=== PATIENT | female | born 1980 | race Caucasian/White ===

== ENCOUNTER 2018-09-13 10:27 | Inpatient (IN) ==
[2018-09-13] MEDS ORDERED: PANTOPRAZOLE 40 MG VIAL IV STA (11:01)
[2018-09-13] MEDS ORDERED: SODIUM CHLORIDE 0.9% 1,000 ML IV STA (11:01)
[2018-09-13 11:45] LABS: Apearance,Urine CLEAR (Clear); Bacteria,Urine Occasional /HPF (Few); Bilirubin,Urine Negative (Negative); Blood, Urine Negative (Negative); Glucose,Urine (UA) Negative (Negative); Ketones,Urine Negative (Negative); Nitrite,Urine Negative (Negative); Protein,Urine Negative; RBC,Urine 1 /HPF (0-4); Squamous Epithelial Cell,Urine Moderate /HPF (0-10); Urine Color Straw (Yellow); Urine Specific Gravity 1.008 (1.001-1.035); Urine Urobilinogen < 2.0 EU/DL (0.2-1.0); WBC,Urine 2 /HPF (0-6)
[2018-09-13 11:49] LABS: Alanine Aminotransferase 16 U/L (13-56); Albumin 2.8 G/DL (3.4-5.0); Alkaline Phosphatase 117 U/L (45-117); Aspartate Amino Transferase 11 U/L (0-37); Bilirubin,Total < 0.39 MG/DL (0.2-1.0); Blood Urea Nitrogen 10 MG/DL (7-18); Glucose 98 MG/DL (74-106); Osmolality,Calculated 277.4 MOS/KG (273-304); Potassium 3.8 MMOL/L (3.5-5.1); Sodium 140 MMOL/L (136-145); Total Protein 6.5 G/DL (6.4-8.3)
[2018-09-13] MEDS ORDERED: PROMETHAZINE INJ 12.5 MG in SODIUM CHLORIDE 0.9% 50 ML IV STA (12:18)
[2018-09-13] MEDS ORDERED: PROMETHAZINE 25 MG/1 ML VIAL ONE (12:55)
[2018-09-13 13:17] LABS: Basophils % 0.5 % (0.0-0.8); Eosinophils # 0.6 10*3/uL (0.0-0.87); Hematocrit 34.1 VOL% (35.7-47.0); Hemoglobin 9.4 GM/DL (12.0-16.0); Immature Granulocytes % 0.3 %; Immature Granulocytes Absolute 0.02 #; Lymphocytes # 1.5 10*3/uL (1.4-4.0); Lymphocytes % 24.7 % (21.3-54.2); Mean Corpuscular HGB Conc 27.6 GM/DL (32-36); Mean Corpuscular Hemoglobin 22 PG (27-34); Mean Corpuscular Volume 78.9 FL (87-102); Monocytes # 0.5 10*3/uL (0.11-0.8); Monocytes % 7.8 % (1.7-12.7); Neutrophils # 3.5 10*3/uL (1.4-7.4); Neutrophils % 56.7 % (38.7-73.9); Platelet Count 366 T/CUMM (130-400); Red Blood Count 4.32 MC/CUMM (3.8-5.5); Red Cell Distribution Width 23.6 % (9.3-17.3); White Blood Count 6.1 T/CUMM (4-12)
[2018-09-13 13:57] LABS: Microcytosis 2+
[2018-09-13 13:58] LABS: Elliptocytes Few; Tear Drop Cells Few
[2018-09-13 13:59] LABS: Platelet Estimate Increased
[2018-09-13] MEDS ORDERED: ACETAMINOPHEN 500 MG TABLET PO STA (16:25)
[2018-09-13] MEDS ORDERED: ACETAMINOPHEN 325 MG TABLET PO PRN (18:03)
[2018-09-13] MEDS ORDERED: IBUPROFEN 800 MG TABLET PO PRN (19:04)
[2018-09-13] MEDS ORDERED: GABAPENTIN 300 MG CAPSULE PO PRN (19:04)
[2018-09-13] MEDS ORDERED: MORPHINE 4 MG/1 ML VIAL IV PRN (19:20)
[2018-09-13] MEDS: MORPHINE 4 MG/1 ML VIAL IV PRN (20:16)
[2018-09-13] MEDS: PIPERACILLIN/TAZOBACTAM 3,375 MG in SODIUM CHLORIDE 0.9% 100 ML IV SCH (20:19)
[2018-09-13] MEDS ORDERED: ENOXAPARIN 40 MG/0.4 ML SYRINGE SUBCUT SCH (21:00)
[2018-09-13] MEDS ORDERED: ZALEPLON 5 MG CAPSULE PO SCH (21:00)
[2018-09-13] MEDS: PROMETHAZINE 25 MG TABLET PO PRN (21:44)
[2018-09-14] MEDS: MORPHINE 4 MG/1 ML VIAL IV PRN ×6 (00:18→21:32)
[2018-09-14] MEDS: PIPERACILLIN/TAZOBACTAM 3,375 MG in SODIUM CHLORIDE 0.9% 100 ML IV SCH ×3 (02:47→23:48)
[2018-09-14 05:32] LABS: Basophils % 0.5 % (0.0-0.8); Eosinophils # 0.6 10*3/uL (0.0-0.87); Eosinophils % 8.7 % (0.00-10.9); Immature Granulocytes % 0.6 %; Immature Granulocytes Absolute 0.04 #; Lymphocytes # 1.5 10*3/uL (1.4-4.0); Lymphocytes % 22.2 % (21.3-54.2); Mean Corpuscular HGB Conc 27.8 GM/DL (32-36); Mean Corpuscular Hemoglobin 22 PG (27-34); Mean Corpuscular Volume 79.8 FL (87-102); Mean Platelet Volume 10.4 FL (9.6-12.0); Monocytes # 0.5 10*3/uL (0.11-0.8); Platelet Count 359 T/CUMM (130-400); Red Blood Count 4.01 MC/CUMM (3.8-5.5); Red Cell Distribution Width 23.7 % (9.3-17.3); White Blood Count 6.6 T/CUMM (4-12)
[2018-09-14 05:41] LABS: Calcium 8.1 MG/DL (8.5-10.1); Osmolality,Calculated 278.1 MOS/KG (273-304); Potassium 3.9 MMOL/L (3.5-5.1); Thyroid Stimulating Hormone 6.35 uIU/ml (0.358-3.74)
[2018-09-14 05:42] LABS: Hematocrit 31.6 VOL% (35.7-47.0)
[2018-09-14 05:43] LABS: Hemoglobin 8.9 GM/DL (12.0-16.0)
[2018-09-14 05:47] LABS: Anisocytosis 1+
[2018-09-14 05:48] LABS: Hypochromasia 1+; Microcytosis 1+; Ovalocytes Slight; Stomatocytes Slight
[2018-09-14 05:49] LABS: Platelet Estimate Normal
[2018-09-14] MEDS: LISINOPRIL 20 MG TABLET PO SCH (09:40)
[2018-09-14] MEDS ORDERED: BUPIVACAINE 0.5% 50 ML VIAL ONE (10:37)
[2018-09-14] MEDS ORDERED: LIDOCAINE 1%/EPI INJ 20 ML VIAL ONE (10:37)
[2018-09-14] MEDS: LACTATED RINGERS 1,000 ML IV SCH (10:39)
[2018-09-14] MEDS: HYDROmorphone 2 MG/1 ML VIAL IV PRN ×4 (11:55→12:10)
[2018-09-14] MEDS ORDERED: PROPOFOL 200 MG/20 ML VIAL IV ONE (11:57)
[2018-09-14] MEDS ORDERED: SEVOFLURANE 1 UNIT/15 MINUTE INH ONE (11:57)
[2018-09-14] MEDS ORDERED: fentaNYL 100 MCG/2 ML VIAL ONE (11:57)
[2018-09-14] MEDS ORDERED: HYDROmorphone 2 MG/1 ML VIAL ONE (11:58)
[2018-09-14] MEDS ORDERED: MIDAZOLAM 2 MG/2 ML VIAL ONE (11:58)
[2018-09-14] MEDS: PROMETHAZINE 25 MG TABLET PO PRN (15:19)
[2018-09-14] MEDS ORDERED: ZALEPLON 5 MG CAPSULE PO PRN (20:18)
[2018-09-14] MEDS: ZOLPIDEM 5 MG TABLET PO PRN (23:46)
[2018-09-15] MEDS: MORPHINE 4 MG/1 ML VIAL IV PRN ×5 (04:08→22:19)
[2018-09-15 05:34] LABS: Calcium 8.7 MG/DL (8.5-10.1); Osmolality,Calculated 277.3 MOS/KG (273-304); Potassium 3.6 MMOL/L (3.5-5.1)
[2018-09-15] MEDS: PIPERACILLIN/TAZOBACTAM 3,375 MG in SODIUM CHLORIDE 0.9% 100 ML IV SCH ×3 (06:31→22:23)
[2018-09-15 06:44] LABS: Basophils % 0.5 % (0.0-0.8); Eosinophils # 0.3 10*3/uL (0.0-0.87); Eosinophils % 5.4 % (0.00-10.9); Hematocrit 32.6 VOL% (35.7-47.0); Hemoglobin 9.3 GM/DL (12.0-16.0); Immature Granulocytes % 0.4 %; Immature Granulocytes Absolute 0.02 #; Lymphocytes % 16.7 % (21.3-54.2); Mean Corpuscular HGB Conc 28.5 GM/DL (32-36); Mean Corpuscular Hemoglobin 22 PG (27-34); Mean Corpuscular Volume 78.6 FL (87-102); Mean Platelet Volume 10.6 FL (9.6-12.0); Monocytes # 0.5 10*3/uL (0.11-0.8); Monocytes % 8.1 % (1.7-12.7); Neutrophils # 3.9 10*3/uL (1.4-7.4); Neutrophils % 68.9 % (38.7-73.9); Platelet Count 427 T/CUMM (130-400); Red Blood Count 4.15 MC/CUMM (3.8-5.5); Red Cell Distribution Width 23.5 % (9.3-17.3); White Blood Count 5.7 T/CUMM (4-12)
[2018-09-15 07:42] LABS: Hypochromasia 1+; Microcytosis 1+; Ovalocytes Slight; Platelet Estimate Adequate
[2018-09-15] MEDS: LISINOPRIL 20 MG TABLET PO SCH (09:58)
[2018-09-15] MEDS: LACTATED RINGERS 1,000 ML IV SCH (12:49)
[2018-09-15] MEDS: ZOLPIDEM 5 MG TABLET PO PRN (23:05)
[2018-09-16] MEDS: MORPHINE 4 MG/1 ML VIAL IV PRN ×2 (04:08→08:09)
[2018-09-16 05:03] LABS: Calcium 8.6 MG/DL (8.5-10.1); Osmolality,Calculated 280.1 MOS/KG (273-304); Potassium 3.4 MMOL/L (3.5-5.1)
[2018-09-16 05:17] LABS: Basophils % 0.7 % (0.0-0.8); Eosinophils # 0.6 10*3/uL (0.0-0.87); Eosinophils % 13.1 % (0.00-10.9); Hematocrit 32.4 VOL% (35.7-47.0); Hemoglobin 9.3 GM/DL (12.0-16.0); Immature Granulocytes % 0.9 %; Immature Granulocytes Absolute 0.04 #; Lymphocytes # 1.2 10*3/uL (1.4-4.0); Lymphocytes % 27.3 % (21.3-54.2); Mean Corpuscular HGB Conc 28.7 GM/DL (32-36); Mean Corpuscular Hemoglobin 23 PG (27-34); Mean Corpuscular Volume 78.5 FL (87-102); Mean Platelet Volume 10.3 FL (9.6-12.0); Monocytes # 0.4 10*3/uL (0.11-0.8); Neutrophils # 2.2 10*3/uL (1.4-7.4); Platelet Count 430 T/CUMM (130-400); Red Blood Count 4.13 MC/CUMM (3.8-5.5); Red Cell Distribution Width 23.6 % (9.3-17.3); White Blood Count 4.4 T/CUMM (4-12)
[2018-09-16 05:18] LABS: Anisocytosis 1+; Platelet Estimate Increased
[2018-09-16] MEDS: PIPERACILLIN/TAZOBACTAM 3,375 MG in SODIUM CHLORIDE 0.9% 100 ML IV SCH (05:41)
[2018-09-16] MEDS: PROMETHAZINE 25 MG TABLET PO PRN (05:44)
[2018-09-16 08:37] VITALS: BP 144/76
[2018-09-16] MEDS ORDERED: SODIUM HYPOCHLORITE 0.25% IRRIG 473 ML BOTTLE TOP SCH (09:00)
[2018-09-16] MEDS: LISINOPRIL 20 MG TABLET PO SCH ×2 (10:06→11:51)
== END 2018-09-16 12:08 | disposition home health service (06) | DRG 580 ==
LOC: N.ED 10:27 → N.EDINP 18:03 → N.4E 20:08
PROVIDERS: ADMIT Emergency Medicine; ATTEND Emergency Medicine

== ENCOUNTER 2018-11-29 21:12 | Inpatient (IN) ==
[2018-11-29] MEDS ORDERED: SODIUM CHLORIDE 0.9% 1,000 ML IV STA (21:41)
[2018-11-29] MEDS ORDERED: MORPHINE 4 MG/1 ML VIAL IV STA (21:41)
[2018-11-29] MEDS ORDERED: PROMETHAZINE INJ 25 MG in SODIUM CHLORIDE 0.9% 50 ML IV STA (21:42)
[2018-11-29] MEDS ORDERED: METOCLOPRAMIDE 10 MG/2 ML VIAL IV STA (22:12)
[2018-11-29 22:34] LABS: Basophils % 0.4 % (0.0-0.8); Eosinophils % 0.1 % (0.00-10.9); Hemoglobin 9.1 GM/DL (12.0-16.0); Red Cell Distribution Width 18.2 % (9.3-17.3)
[2018-11-29 22:52] LABS: Alanine Aminotransferase 20 U/L (13-56); Albumin 4.3 G/DL (3.4-5.0); Alkaline Phosphatase 120 U/L (45-117); Aspartate Amino Transferase 14 U/L (0-37); Bilirubin,Total < 0.39 MG/DL (0.2-1.0); Blood Urea Nitrogen 14 MG/DL (7-18); Calcium 9.4 MG/DL (8.5-10.1); Glucose 130 MG/DL (74-106); Osmolality,Calculated 290.7 MOS/KG (273-304); Total Protein 7.7 G/DL (6.4-8.3)
[2018-11-29 22:53] LABS: Hematocrit 35.1 VOL% (35.7-47.0); Immature Granulocytes % 0.8 %; Immature Granulocytes Absolute 0.08 #; Lymphocytes # 0.8 10*3/uL (1.4-4.0); Lymphocytes % 7.9 % (21.3-54.2); Mean Corpuscular HGB Conc 25.9 GM/DL (32-36); Mean Corpuscular Volume 76.6 FL (87-102); Mean Platelet Volume 10.7 FL (9.6-12.0); Monocytes % 4.7 % (1.7-12.7); Neutrophils % 86.1 % (38.7-73.9); Platelet Count 506 T/CUMM (130-400); Red Blood Count 4.58 MC/CUMM (3.8-5.5); White Blood Count 10.2 T/CUMM (4-12)
[2018-11-29 22:54] LABS: Hypochromasia 1+
[2018-11-29 22:55] LABS: Anisocytosis 1+; Elliptocytes 1+; Platelet Estimate Adequate; Polychromasia Few; Target Cells Few
[2018-11-29 23:50] LABS: Apearance,Urine CLEAR (Clear); Bilirubin,Urine Negative (Negative); Blood, Urine Negative (Negative); Glucose,Urine (UA) Negative (Negative); Hyaline Casts,Urine 6 /LPF (0-3); Ketones,Urine 5 mg/dL (Negative); Mucus,Urine Occasional /LPF (Occasional); Nitrite,Urine Negative (Negative); Protein,Urine 30 MG/DL; RBC,Urine <1 /HPF (0-4); Renal Epithelial Cells,Urine Occasional /HPF (<1); Squamous Epithelial Cell,Urine Occasional /HPF (0-10); Urine Color Yellow (Yellow); Urine Specific Gravity 1.025 (1.001-1.035); Urine Urobilinogen < 2.0 EU/DL (0.2-1.0); WBC,Urine 2 /HPF (0-6)
[2018-11-30] MEDS: SODIUM CHLORIDE 0.9% 1,000 ML IV SCH ×3 (04:45→23:50)
[2018-11-30] MEDS: ENOXAPARIN 40 MG/0.4 ML SYRINGE SUBCUT SCH (04:45)
[2018-11-30] MEDS: PROMETHAZINE 25 MG/1 ML VIAL IM PRN ×3 (04:59→18:37)
[2018-11-30] MEDS: MORPHINE 4 MG/1 ML VIAL IV PRN ×4 (04:59→23:43)
[2018-11-30 07:15] LABS: Alanine Aminotransferase 17 U/L (13-56); Albumin 3.8 G/DL (3.4-5.0); Alkaline Phosphatase 103 U/L (45-117); Aspartate Amino Transferase 9 U/L (0-37); Bilirubin,Total < 0.39 MG/DL (0.2-1.0); Blood Urea Nitrogen 11 MG/DL (7-18); Calcium 9.3 MG/DL (8.5-10.1); Glucose 101 MG/DL (74-106); Osmolality,Calculated 284.8 MOS/KG (273-304); Total Protein 7.4 G/DL (6.4-8.3)
[2018-11-30 07:28] LABS: Basophils % 0.1 % (0.0-0.8); Hematocrit 31.7 VOL% (35.7-47.0); Immature Granulocytes % 0.4 %; Immature Granulocytes Absolute 0.03 #; Lymphocytes # 0.9 10*3/uL (1.4-4.0); Lymphocytes % 12.2 % (21.3-54.2); Mean Corpuscular HGB Conc 26.5 GM/DL (32-36); Mean Corpuscular Volume 76.8 FL (87-102); Mean Platelet Volume 10.1 FL (9.6-12.0); Neutrophils % 82.3 % (38.7-73.9); Platelet Count 424 T/CUMM (130-400); Red Blood Count 4.13 MC/CUMM (3.8-5.5)
[2018-11-30 07:39] LABS: Hemoglobin 8.4 GM/DL (12.0-16.0)
[2018-11-30 07:50] LABS: Hypochromasia 1+
[2018-11-30 07:51] LABS: Microcytosis 1+; Ovalocytes Slight; Platelet Estimate Increased
[2018-11-30] MEDS: POTASSIUM CHLORIDE 20 MEQ TABLET PO PRN ×2 (17:56→22:01)
[2018-11-30] MEDS: ZALEPLON 5 MG CAPSULE PO PRN (23:49)
[2018-12-01] MEDS: ENOXAPARIN 40 MG/0.4 ML SYRINGE SUBCUT SCH (02:05)
[2018-12-01 05:06] LABS: Calcium 8.2 MG/DL (8.5-10.1); Osmolality,Calculated 282.8 MOS/KG (273-304)
[2018-12-01] MEDS: MORPHINE 4 MG/1 ML VIAL IV PRN ×4 (05:18→22:03)
[2018-12-01] MEDS: PROMETHAZINE 25 MG/1 ML VIAL IM PRN ×3 (05:21→17:11)
[2018-12-01] MEDS ORDERED: LACTATED RINGERS 1,000 ML IV SCH (08:00)
[2018-12-01] MEDS ORDERED: PROPOFOL 200 MG/20 ML VIAL IV ONE (10:15)
[2018-12-01] MEDS ORDERED: ETOMIDATE 20 MG/10 ML VIAL IV ONE (10:15)
[2018-12-01] MEDS ORDERED: LIDOCAINE 2% 5 ML VIAL ONE (10:15)
[2018-12-01] MEDS: SODIUM CHLORIDE 0.9% 1,000 ML IV SCH ×3 (11:59→22:03)
[2018-12-02] MEDS: ENOXAPARIN 40 MG/0.4 ML SYRINGE SUBCUT SCH (01:52)
[2018-12-02] MEDS: PROMETHAZINE 25 MG/1 ML VIAL IM PRN (07:57)
[2018-12-02] MEDS: SODIUM CHLORIDE 0.9% 1,000 ML IV SCH ×2 (13:42→21:35)
[2018-12-02] MEDS: MORPHINE 4 MG/1 ML VIAL IV PRN ×3 (13:42→18:26)
[2018-12-02] MEDS ORDERED: PANTOPRAZOLE 40 MG TABLET PO SCH (14:00)
[2018-12-02] MEDS ORDERED: PROMETHAZINE 25 MG TABLET PO PRN (16:11)
[2018-12-02] MEDS: SUCRALFATE 1 GM/10 ML UDCUP PO SCH ×2 (18:26→21:35)
[2018-12-02] MEDS: IRON SUCROSE 200 MG in SODIUM CHLORIDE 0.9% 100 ML IV SCH (18:26)
[2018-12-02] MEDS: ZALEPLON 5 MG CAPSULE PO PRN (21:34)
[2018-12-02] MEDS: PANTOPRAZOLE 40 MG TABLET PO SCH (21:35)
[2018-12-03] MEDS: ENOXAPARIN 40 MG/0.4 ML SYRINGE SUBCUT SCH (02:47)
[2018-12-03] MEDS: SODIUM CHLORIDE 0.9% 1,000 ML IV SCH (02:48)
[2018-12-03] MEDS: MORPHINE 4 MG/1 ML VIAL IV PRN (02:49)
[2018-12-03] MEDS ORDERED: BUPRENORPHINE NALOXONE SL SCH (09:00)
[2018-12-03] MEDS: PANTOPRAZOLE 40 MG TABLET PO SCH (09:59)
[2018-12-03] MEDS: IRON SUCROSE 200 MG in SODIUM CHLORIDE 0.9% 100 ML IV SCH (10:00)
[2018-12-03] MEDS: SUCRALFATE 1 GM/10 ML UDCUP PO SCH ×2 (10:00→15:33)
[2018-12-03 12:10] VITALS: BP 112/77
== END 2018-12-03 15:10 | disposition home or self-care (01) | DRG 392 ==
LOC: N.ED 21:12 → N.EDINP 21:12 → N.4E 11-30 03:14
PROVIDERS: ADMIT Internal Medicine; ATTEND Internal Medicine

== ENCOUNTER 2018-12-09 17:59 | Observation (INO) ==
[2018-12-09] MEDS ORDERED: PROMETHAZINE INJ 12.5 MG in SODIUM CHLORIDE 0.9% 50 ML IV STA ×2 (18:34→20:43)
[2018-12-09] MEDS ORDERED: LACTATED RINGERS 1,000 ML IV ONE (18:34)
[2018-12-09] MEDS ORDERED: PROMETHAZINE 25 MG/1 ML VIAL ONE ×2 (18:38→20:41)
[2018-12-09 19:17] LABS: Alanine Aminotransferase 17 U/L (13-56); Albumin 3.6 G/DL (3.4-5.0); Alkaline Phosphatase 100 U/L (45-117); Aspartate Amino Transferase 18 U/L (0-37); Bilirubin,Total < 0.39 MG/DL (0.2-1.0); Blood Urea Nitrogen 8 MG/DL (7-18); Calcium 8.3 MG/DL (8.5-10.1); Glucose 104 MG/DL (74-106); Osmolality,Calculated 278.3 MOS/KG (273-304); Total Protein 7.7 G/DL (6.4-8.3)
[2018-12-09 19:22] LABS: Apearance,Urine CLEAR (Clear); Basophils % 0.4 % (0.0-0.8); Bilirubin,Urine Negative (Negative); Blood, Urine Negative (Negative); Eosinophils # 0.1 10*3/uL (0.0-0.87); Eosinophils % 1.7 % (0.00-10.9); Glucose,Urine (UA) Negative (Negative); Hematocrit 36.7 VOL% (35.7-47.0); Hemoglobin 9.8 GM/DL (12.0-16.0); Immature Granulocytes % 0.9 %; Immature Granulocytes Absolute 0.04 #; Ketones,Urine Negative (Negative); Lymphocytes % 22.1 % (21.3-54.2); Mean Corpuscular HGB Conc 26.7 GM/DL (32-36); Mean Corpuscular Volume 77.1 FL (87-102); Mean Platelet Volume 9.9 FL (9.6-12.0); Monocytes % 6.1 % (1.7-12.7); Mucus,Urine Occasional /LPF (Occasional); Neutrophils % 68.8 % (38.7-73.9); Nitrite,Urine Negative (Negative); Platelet Count 424 T/CUMM (130-400); Protein,Urine Negative; RBC,Urine 1 /HPF (0-4); Red Blood Count 4.76 MC/CUMM (3.8-5.5); Red Cell Distribution Width 21.3 % (9.3-17.3); Squamous Epithelial Cell,Urine Occasional /HPF (0-10); Urine Color Yellow (Yellow); Urine Specific Gravity 1.014 (1.001-1.035); Urine Urobilinogen < 2.0 EU/DL (0.2-1.0); WBC,Urine 3 /HPF (0-6); White Blood Count 4.6 T/CUMM (4-12)
[2018-12-09] MEDS ORDERED: ACETAMINOPHEN 500 MG TABLET ONE (20:17)
[2018-12-09] MEDS ORDERED: ACETAMINOPHEN 500 MG TABLET PO STA (20:34)
[2018-12-09 21:23] LABS: Hypochromasia 2+
[2018-12-09 21:24] LABS: Ovalocytes 1+; Poikilocytosis Slight; Polychromasia 1+
[2018-12-09 21:25] LABS: Anisocytosis 2+; Platelet Estimate Normal
[2018-12-09] MEDS ORDERED: ACETAMINOPHEN 325 MG TABLET PO PRN (21:53)
[2018-12-09] MEDS ORDERED: NICOTINE 21 MG/24 HR PATCH TRANSDERM PRN (21:53)
[2018-12-10] MEDS: SODIUM CHLORIDE 0.9% 1,000 ML IV SCH ×3 (01:07→17:47)
[2018-12-10] MEDS: POTASSIUM CHLORIDE RIDER 10 MEQ in PREMIX 1 EACH IV PRN ×6 (01:08→14:48)
[2018-12-10] MEDS: PROMETHAZINE 25 MG/1 ML VIAL IM PRN ×3 (03:03→14:48)
[2018-12-10 05:34] LABS: Eosinophils % 0.2 % (0.00-10.9); Mean Platelet Volume 10.2 FL (9.6-12.0); Monocytes % 8.8 % (1.7-12.7); Red Blood Count 4.15 MC/CUMM (3.8-5.5)
[2018-12-10 05:54] LABS: Basophils % 0.7 % (0.0-0.8); Hematocrit 32.2 VOL% (35.7-47.0); Hemoglobin 8.5 GM/DL (12.0-16.0); Immature Granulocytes % 0.7 %; Immature Granulocytes Absolute 0.03 #; Lymphocytes # 1.2 10*3/uL (1.4-4.0); Lymphocytes % 27.5 % (21.3-54.2); Mean Corpuscular HGB Conc 26.4 GM/DL (32-36); Mean Corpuscular Volume 77.6 FL (87-102); Neutrophils % 62.1 % (38.7-73.9); Platelet Count 431 T/CUMM (130-400); Red Cell Distribution Width 20.8 % (9.3-17.3); White Blood Count 4.4 T/CUMM (4-12)
[2018-12-10 06:03] LABS: Bilirubin,Total 0.5 MG/DL (0.2-1.0); Calcium 8.4 MG/DL (8.5-10.1); Osmolality,Calculated 279.1 MOS/KG (273-304); Total Protein 6.6 G/DL (6.4-8.3)
[2018-12-10 06:05] LABS: Hypochromasia 2+; Platelet Estimate Increased
[2018-12-10 06:06] LABS: Ovalocytes 1+
[2018-12-10 06:07] LABS: Tear Drop Cells Few
[2018-12-10] MEDS: ENOXAPARIN 40 MG/0.4 ML SYRINGE SUBCUT SCH (09:03)
[2018-12-10] MEDS: FAMOTIDINE 20 MG/2 ML VIAL IV SCH ×2 (09:03→20:46)
[2018-12-10] MEDS ORDERED: POTASSIUM CHLORIDE 10 MEQ TABLET PO ONE (19:37)
[2018-12-11] MEDS: SODIUM CHLORIDE 0.9% 1,000 ML IV SCH ×2 (01:36→10:26)
[2018-12-11 05:36] LABS: Calcium 8.2 MG/DL (8.5-10.1); Osmolality,Calculated 281.8 MOS/KG (273-304)
[2018-12-11 06:34] LABS: Basophils % 0.5 % (0.0-0.8); Eosinophils # 0.1 10*3/uL (0.0-0.87); Eosinophils % 2.8 % (0.00-10.9); Hematocrit 28.7 VOL% (35.7-47.0); Hemoglobin 7.7 GM/DL (12.0-16.0); Immature Granulocytes % 0.5 %; Immature Granulocytes Absolute 0.02 #; Lymphocytes # 2.1 10*3/uL (1.4-4.0); Lymphocytes % 52.4 % (21.3-54.2); Mean Corpuscular HGB Conc 26.8 GM/DL (32-36); Mean Corpuscular Volume 78.6 FL (87-102); Mean Platelet Volume 10.6 FL (9.6-12.0); Monocytes % 8.1 % (1.7-12.7); Neutrophils % 35.7 % (38.7-73.9); Platelet Count 313 T/CUMM (130-400); Red Blood Count 3.65 MC/CUMM (3.8-5.5); Red Cell Distribution Width 20.5 % (9.3-17.3)
[2018-12-11 06:44] LABS: Eosinophils 2 % (0-10); Lymphocytes 49 % (20-55); Metamyelocytes 1 %; Segmented Neutrophils 33 % (50-85); Total Cells Counted 100
[2018-12-11 06:45] LABS: Platelet Estimate Normal
[2018-12-11] MEDS: PROMETHAZINE 25 MG/1 ML VIAL IM PRN (08:48)
[2018-12-11] MEDS: FAMOTIDINE 20 MG/2 ML VIAL IV SCH (08:48)
[2018-12-11] MEDS: ENOXAPARIN 40 MG/0.4 ML SYRINGE SUBCUT SCH (08:48)
[2018-12-11] MEDS ORDERED: SODIUM CHLORIDE 0.9% 1,000 ML IV PRN (12:03)
[2018-12-11 16:27] VITALS: BP 147/86
[2018-12-11 17:12] LABS: Hematocrit 34.1 VOL% (35.7-47.0)
[2018-12-11 17:18] LABS: Hemoglobin 9.3 GM/DL (12.0-16.0)
[2018-12-11] MEDS ORDERED: PNEUMOCOCCAL VACCINE (13 VALENT) 0.5 ML SYRINGE IM ONE (17:39)
== END 2018-12-11 18:04 | disposition home or self-care (01) ==
LOC: EDUNIT# → EDBD → N.5E 17:59 → N.ED 17:59 → SUATTDRO 21:53 → N.5E 12-10 00:03
PROVIDERS: ADMIT Family Medicine; ATTEND Internal Medicine

== ENCOUNTER 2020-02-18 12:23 | Observation (INO) ==
[2020-02-18] MEDS ORDERED: SODIUM CHLORIDE 0.9% 1,000 ML IV STA (13:57)
[2020-02-18 13:58] LABS: Alanine Aminotransferase 27 U/L (13-56); Alkaline Phosphatase 102 U/L (45-117); Aspartate Amino Transferase 9 U/L (0-37); Bilirubin,Total < 0.39 MG/DL (0.2-1.0); Blood Urea Nitrogen 12 MG/DL (7-18); Calcium 8.5 MG/DL (8.5-10.1); Estimated Glom Filtration Rate 123 ML/MIN; Glucose 81 MG/DL (74-106); Osmolality,Calculated 279.3 MOS/KG (273-304); Total Protein 6.5 G/DL (6.4-8.3)
[2020-02-18 14:34] LABS: Eosinophils # 0.5 10*3/uL (0.0-0.87); Eosinophils % 15.4 % (0.00-10.9); Hemoglobin 9.1 GM/DL (12.0-16.0); Immature Granulocytes % 0.3 %; Immature Granulocytes Absolute 0.01 #; Lymphocytes # 1.3 10*3/uL (1.4-4.0); Lymphocytes % 44.2 % (21.3-54.2); Mean Corpuscular HGB Conc 27.6 GM/DL (32-36); Mean Corpuscular Volume 81.1 FL (87-102); Mean Platelet Volume 10.3 FL (9.6-12.0); Monocytes % 16.8 % (1.7-12.7); Neutrophils % 22.3 % (38.7-73.9); Platelet Count 346 T/CUMM (130-400); Red Blood Count 4.07 MC/CUMM (3.8-5.5); Red Cell Distribution Width 16.4 % (9.3-17.3); White Blood Count 2.9 T/CUMM (4-12)
[2020-02-18 14:42] LABS: Anisocytosis 1+; Eosinophils 14 % (0-10); Hypochromasia Slight; Lymphocytes 51 % (20-55); Macrocytosis Slight; Microcytosis 1+; Segmented Neutrophils 19 % (50-85); Total Cells Counted 100
[2020-02-18 14:43] LABS: Platelet Estimate Normal; Polychromasia Slight; Reactive Lymphocytes Slight
[2020-02-18] MEDS ORDERED: PROMETHAZINE 25 MG/1 ML VIAL ONE (15:37)
[2020-02-18] MEDS ORDERED: KETOROLAC 30 MG/1 ML VIAL ONE (15:37)
[2020-02-18] MEDS ORDERED: PROMETHAZINE IV STA (15:40)
[2020-02-18] MEDS ORDERED: SODIUM CHLORIDE 0.9% IV STA (15:40)
[2020-02-18] MEDS ORDERED: KETOROLAC 30 MG/1 ML VIAL IV STA (15:41)
[2020-02-18] MEDS ORDERED: GLUCAGON 1 MG VIAL IM PRN (17:08)
[2020-02-18] MEDS ORDERED: MAGNESIUM SULF RIDER 2 GM in PREMIX 1 EACH IV PRN (17:08)
[2020-02-18] MEDS ORDERED: DEXTROSE 50% 25 GM/50 ML VIAL IV PRN (17:08)
[2020-02-18] MEDS ORDERED: hydrALAZINE 20 MG/1 ML VIAL IV PRN (17:08)
[2020-02-18] MEDS ORDERED: ALBUTEROL/IPRATROPIUM 3 ML NEB RESP TX PRN (17:08)
[2020-02-18] MEDS ORDERED: MAGNESIUM SULF RIDER 4 GM in PREMIX 1 EACH IV PRN (17:08)
[2020-02-18] MEDS ORDERED: ENOXAPARIN 40 MG/0.4 ML SYRINGE SUBCUT SCH (21:00)
[2020-02-18] MEDS: SODIUM CHLORIDE 0.9% 1,000 ML IV SCH (22:55)
[2020-02-18] MEDS: PROMETHAZINE 25 MG/1 ML VIAL IM PRN (22:56)
[2020-02-18] MEDS: GABAPENTIN 300 MG CAPSULE PO PRN (22:58)
[2020-02-19] MEDS: SODIUM CHLORIDE 0.9% 1,000 ML IV SCH ×4 (05:49→23:56)
[2020-02-19] MEDS: PROMETHAZINE 25 MG/1 ML VIAL IM PRN ×4 (05:49→21:21)
[2020-02-19 06:45] LABS: Basophils % 0.7 % (0.0-0.8); Eosinophils # 0.4 10*3/uL (0.0-0.87); Eosinophils % 13.8 % (0.00-10.9); Hematocrit 28.8 VOL% (35.7-47.0); Hemoglobin 7.9 GM/DL (12.0-16.0); Immature Granulocytes % 0.4 %; Immature Granulocytes Absolute 0.01 #; Lymphocytes # 1.6 10*3/uL (1.4-4.0); Lymphocytes % 61.2 % (21.3-54.2); Mean Corpuscular HGB Conc 27.4 GM/DL (32-36); Mean Corpuscular Volume 81.1 FL (87-102); Mean Platelet Volume 10.1 FL (9.6-12.0); Monocytes % 10.8 % (1.7-12.7); Neutrophils % 13.1 % (38.7-73.9); Platelet Count 298 T/CUMM (130-400); Red Blood Count 3.55 MC/CUMM (3.8-5.5); Red Cell Distribution Width 16.4 % (9.3-17.3); White Blood Count 2.7 T/CUMM (4-12)
[2020-02-19 06:51] LABS: Atypical Lymphocytes Few; Eosinophils 17 % (0-10); Hypochromasia 2+; Lymphocytes 60 % (20-55); Microcytosis 1+; Ovalocytes Slight; Platelet Estimate Adequate; Segmented Neutrophils 17 % (50-85); Total Cells Counted 100
[2020-02-19 07:01] LABS: Alanine Aminotransferase 19 U/L (13-56); Albumin 2.4 G/DL (3.4-5.0); Alkaline Phosphatase 90 U/L (45-117); Aspartate Amino Transferase 8 U/L (0-37); Bilirubin,Total < 0.39 MG/DL (0.2-1.0); Blood Urea Nitrogen 11 MG/DL (7-18); Calcium 8.1 MG/DL (8.5-10.1); Estimated Glom Filtration Rate 131 ML/MIN; Glucose 83 MG/DL (74-106); HDL Cholesterol 21 MG/DL (40-60); Osmolality,Calculated 280.1 MOS/KG (273-304); Risk Ratio 4.48; Total Protein 5.4 G/DL (6.4-8.3); Triglycerides 185 MG/DL (2-150)
[2020-02-19 07:36] LABS: Apearance,Urine Slightly Hazy (Clear); Bacteria,Urine Occasional /HPF (Few); Bilirubin,Urine Negative (Negative); Blood, Urine Small mg/dL (Negative); Glucose,Urine (UA) Negative (Negative); Ketones,Urine Negative (Negative); Mucus,Urine Occasional /LPF (Occasional); Nitrite,Urine Negative (Negative); Protein,Urine Negative; RBC,Urine 1 /HPF (0-4); Squamous Epithelial Cell,Urine Few /HPF (0-10); Urine Color Yellow (Yellow); Urine Urobilinogen < 2.0 EU/DL (0.2-1.0); WBC,Urine 5 /HPF (0-6)
[2020-02-19] MEDS: GABAPENTIN 300 MG CAPSULE PO PRN ×3 (10:11→23:57)
[2020-02-19] MEDS ORDERED: ACETAMINOPHEN 500 MG TABLET PO PRN (12:16)
[2020-02-19] MEDS: PANTOPRAZOLE 40 MG VIAL IV SCH ×2 (12:28→21:18)
[2020-02-19] MEDS: METOCLOPRAMIDE 10 MG/2 ML VIAL IV SCH ×2 (17:02→23:55)
[2020-02-20] MEDS: SODIUM CHLORIDE 0.9% 1,000 ML IV SCH ×3 (03:30→18:16)
[2020-02-20] MEDS: METOCLOPRAMIDE 10 MG/2 ML VIAL IV SCH ×4 (05:18→23:55)
[2020-02-20] MEDS: PANTOPRAZOLE 40 MG VIAL IV SCH ×2 (08:36→21:40)
[2020-02-20] MEDS: PROMETHAZINE 25 MG/1 ML VIAL IM PRN ×2 (09:11→21:40)
[2020-02-20] MEDS ORDERED: lisinopriL 10 MG TABLET PO PRN (13:28)
[2020-02-20] MEDS: GABAPENTIN 300 MG CAPSULE PO PRN (21:40)
[2020-02-21] MEDS: PROMETHAZINE 25 MG/1 ML VIAL IM PRN ×3 (04:55→17:27)
[2020-02-21] MEDS: SODIUM CHLORIDE 0.9% 1,000 ML IV SCH ×3 (04:55→17:34)
[2020-02-21] MEDS: METOCLOPRAMIDE 10 MG/2 ML VIAL IV SCH ×3 (05:31→17:28)
[2020-02-21 06:33] LABS: Osmolality,Calculated 282.8 MOS/KG (273-304)
[2020-02-21 07:01] LABS: Basophils % 0.5 % (0.0-0.8); Eosinophils # 0.3 10*3/uL (0.0-0.87); Eosinophils % 16.1 % (0.00-10.9); Immature Granulocytes % 0.5 %; Immature Granulocytes Absolute 0.01 #; Lymphocytes # 1.1 10*3/uL (1.4-4.0); Lymphocytes % 59.1 % (21.3-54.2); Mean Corpuscular HGB Conc 27.6 GM/DL (32-36); Mean Platelet Volume 9.8 FL (9.6-12.0); Monocytes % 12.4 % (1.7-12.7); Neutrophils % 11.4 % (38.7-73.9); Platelet Count 267 T/CUMM (130-400); Red Blood Count 3.58 MC/CUMM (3.8-5.5); Red Cell Distribution Width 16.4 % (9.3-17.3); White Blood Count 1.9 T/CUMM (4-12)
[2020-02-21 07:31] LABS: Eosinophils 11 % (0-10); Hypochromasia 2+; Lymphocytes 64 % (20-55); Microcytosis Slight; Ovalocytes Slight; Platelet Estimate Adequate; Segmented Neutrophils 16 % (50-85); Total Cells Counted 100
[2020-02-21 07:32] LABS: Atypical Lymphocytes Few
[2020-02-21] MEDS: PANTOPRAZOLE 40 MG VIAL IV SCH ×2 (09:11→20:48)
[2020-02-21] MEDS ORDERED: NF- (Umeclidinium-Vilanterol [Anoro Ellipta] 62.5-25 mcg/actuation Bl INH SCH (12:00)
[2020-02-22] MEDS: METOCLOPRAMIDE 10 MG/2 ML VIAL IV SCH ×2 (00:11→05:40)
[2020-02-22] MEDS: PROMETHAZINE 25 MG/1 ML VIAL IM PRN ×2 (01:56→08:49)
[2020-02-22] MEDS: SODIUM CHLORIDE 0.9% 1,000 ML IV SCH (01:57)
[2020-02-22] MEDS: GABAPENTIN 300 MG CAPSULE PO PRN (05:12)
[2020-02-22] MEDS: PANTOPRAZOLE 40 MG VIAL IV SCH (08:42)
[2020-02-22 11:25] VITALS: BP 106/59
== END 2020-02-22 13:45 | disposition home or self-care (01) ==
LOC: N.EDINP 12:23 → N.ED 12:23 → SUATTDRO 17:08 → N.EDINP 19:30 → N.3E 19:37
PROVIDERS: ADMIT Emergency Medicine; ATTEND Internal Medicine

== ENCOUNTER 2021-08-30 14:11 | Inpatient (IN) ==
[2021-08-30] MEDS ORDERED: SODIUM CHLORIDE 0.9% 1,000 ML IV STA (15:17)
[2021-08-30] MEDS ORDERED: PROMETHAZINE 25 MG/1 ML VIAL IM STA (15:18)
[2021-08-30 16:58] LABS: Amorphous Crystals,Urine Occasional /HPF (Few); Hyaline Casts,Urine 2 /LPF (0-3); Mucus,Urine Occasional /LPF (Occasional); Squamous Epithelial Cell,Urine Occasional /HPF (0-10)
[2021-08-30 16:59] LABS: Protein,Urine Trace mg/dL (Negative); Urine Appearance Slightly Cloudy (Clear); Urine Color Yellow (Yellow)
[2021-08-30 17:00] LABS: Bilirubin,Urine Negative (Negative); Blood, Urine Negative (Negative); Glucose,Urine (UA) Negative (Negative); Ketones,Urine Negative (Negative); Nitrite,Urine Positive (Negative); Urine Urobilinogen 0.2 eU/dL (<2.0)
[2021-08-30 17:26] LABS: Basophils % 0.8 % (0.0-0.8); Eosinophils % 2.4 % (0.00-10.9); Hematocrit 21.3 VOL% (35.7-47.0); Immature Granulocytes % 0.8 %; Immature Granulocytes Absolute 0.01 #; Lymphocytes # 0.6 10*3/uL (1.4-4.0); Mean Corpuscular HGB Conc 24.4 GM/DL (32-36); Mean Corpuscular Volume 83.5 FL (87-102); Mean Platelet Volume 10.9 FL (9.6-12.0); Monocytes % 14.2 % (1.7-12.7); Neutrophils % 33.8 % (38.7-73.9); Platelet Count 407 T/CUMM (130-400); Red Blood Count 2.55 MC/CUMM (3.8-5.5); Red Cell Distribution Width 19.5 % (9.3-17.3); White Blood Count 1.3 T/CUMM (4-12)
[2021-08-30 17:28] LABS: Alanine Aminotransferase 12 U/L (13-56); Albumin 2.7 G/DL (3.4-5.0); Alkaline Phosphatase 74 U/L (45-117); Aspartate Amino Transferase 9 U/L (0-37); Bilirubin,Total < 0.39 MG/DL (0.20-1.00); Blood Urea Nitrogen 8 MG/DL (7-18); Calcium 8.3 MG/DL (8.5-10.1); Carbon Dioxide 29 MMOL/L (21-32); Estimated Glom Filtration Rate 141 ML/MIN; Glucose 76 MG/DL (74-106); Osmolality,Calculated 273.5 MOS/KG (273-304); Potassium 3.9 MMOL/L (3.5-5.1); Sodium 139 MMOL/L (136-145); Total Protein 8.2 G/DL (6.4-8.2)
[2021-08-30 17:29] LABS: Hemoglobin 5.2 GM/DL (12.0-16.0)
[2021-08-30 17:39] LABS: Eosinophils 5 % (0-10); Lymphocytes 44 % (20-55); Segmented Neutrophils 37 % (50-85); Total Cells Counted 100
[2021-08-30 17:40] LABS: Anisocytosis 1+; Hypochromia 3+; Microcytosis 1+; Stomatocytes Slight
[2021-08-30 17:41] LABS: Platelet Estimate Increased
[2021-08-30] MEDS ORDERED: SODIUM CHLORIDE 0.9% 1,000 ML IV PRN (18:14)
[2021-08-30] MEDS ORDERED: LEVOFLOXACIN INJ 750 MG/150 ML PREMIX IV STA (18:21)
[2021-08-30 20:36] LABS: Folate 10.16 NG/ML (5.38-24.0); Vitamin B12 441 PG/ML (211-911)
[2021-08-30] MEDS ORDERED: ACETAMINOPHEN 325 MG TABLET PO STA (21:55)
[2021-08-30] MEDS ORDERED: diphenhydrAMINE 50 MG/1 ML VIAL IV STA (21:55)
[2021-08-30] MEDS ORDERED: PROMETHAZINE INJ 12.5 MG in SODIUM CHLORIDE 0.9% 50 ML IV ONE (21:57)
[2021-08-30] MEDS ORDERED: NICOTINE 21 MG/24 HR PATCH TRANSDERM PRN (22:10)
[2021-08-30] MEDS ORDERED: guaiFENesin/DM ER 600-30 MG TABLET PO PRN (22:10)
[2021-08-30] MEDS ORDERED: DEXTROSE 10% 250 ML BAG IV PRN (22:10)
[2021-08-30] MEDS ORDERED: hydrALAZINE 20 MG/1 ML VIAL IV PRN (22:10)
[2021-08-30] MEDS ORDERED: BISACODYL 5 MG TABLET PO PRN (22:10)
[2021-08-30] MEDS ORDERED: GLUCAGON 1 MG VIAL IM PRN (22:10)
[2021-08-30] MEDS ORDERED: ZALEPLON 5 MG CAPSULE PO PRN (22:10)
[2021-08-30] MEDS ORDERED: diphenhydrAMINE CAP 25 MG CAPSULE PO PRN (22:10)
[2021-08-30 23:32] LABS: Basophils % 1.1 % (0.0-0.8); Eosinophils # 0.1 10*3/uL (0.0-0.87); Eosinophils % 2.9 % (0.00-10.9); Immature Granulocytes % 1.1 %; Immature Granulocytes Absolute 0.02 #; Lymphocytes # 1.1 10*3/uL (1.4-4.0); Lymphocytes % 60.9 % (21.3-54.2); Mean Corpuscular HGB Conc 23.8 GM/DL (32-36); Mean Corpuscular Volume 84.2 FL (87-102); Monocytes % 11.5 % (1.7-12.7); Neutrophils % 22.5 % (38.7-73.9); Platelet Count 430 T/CUMM (130-400); Red Blood Count 2.79 MC/CUMM (3.8-5.5); Red Cell Distribution Width 19.4 % (9.3-17.3); White Blood Count 1.7 T/CUMM (4-12)
[2021-08-30 23:37] LABS: Hematocrit 23.5 VOL% (35.7-47.0); Hemoglobin 5.6 GM/DL (12.0-16.0)
[2021-08-31 00:44] LABS: Eosinophils 4 % (0-10); Hypochromia 1+; Lymphocytes 64 % (20-55); Segmented Neutrophils 24 % (50-85); Target Cells 1+; Total Cells Counted 100
[2021-08-31 00:45] LABS: Platelet Estimate Increased; Polychromasia 1+
[2021-08-31 00:48] LABS: Sedimentation Rate-Westergren 126 MM/HR (0-20)
[2021-08-31] MEDS: ALBUTEROL/IPRATROPIUM 3 ML NEB RESP TX SCH ×4 (01:56→18:25)
[2021-08-31] MEDS ORDERED: SODIUM CHLORIDE 0.9% 1,000 ML IV PRN (05:57)
[2021-08-31 06:07] LABS: Calcium 8.2 MG/DL (8.5-10.1); Osmolality,Calculated 271.5 MOS/KG (273-304); Potassium 3.5 MMOL/L (3.5-5.1)
[2021-08-31 06:22] LABS: Basophils % 0.9 % (0.0-0.8); Eosinophils # 0.1 10*3/uL (0.0-0.87); Eosinophils % 3.1 % (0.00-10.9); Immature Granulocytes % 0.9 %; Immature Granulocytes Absolute 0.02 #; Lymphocytes # 1.1 10*3/uL (1.4-4.0); Lymphocytes % 46.9 % (21.3-54.2); Mean Corpuscular HGB Conc 26.2 GM/DL (32-36); Mean Corpuscular Volume 84.5 FL (87-102); Mean Platelet Volume 10.8 FL (9.6-12.0); Monocytes % 11.8 % (1.7-12.7); NRBC # 0.02 10*3/uL; Neutrophils % 36.4 % (38.7-73.9); Platelet Count 400 T/CUMM (130-400); Red Blood Count 3.61 MC/CUMM (3.8-5.5); Red Cell Distribution Width 18.3 % (9.3-17.3); White Blood Count 2.3 T/CUMM (4-12)
[2021-08-31 06:26] LABS: Hematocrit 30.5 VOL% (35.7-47.0)
[2021-08-31] MEDS ORDERED: DEXTROSE 50% 25 GM/50 ML VIAL IV PRN (06:31)
[2021-08-31 06:49] LABS: Anisocytosis 1+; Band Neutrophils 6 % (0-10); Eosinophils 3 % (0-10); Hypochromia 1+; Lymphocytes 52 % (20-55); Ovalocytes Few; Platelet Estimate Normal; Segmented Neutrophils 31 % (50-85); Smudge Cells Few; Tear Drop Cells Few; Total Cells Counted 100
[2021-08-31 06:50] LABS: Atypical Lymphocytes Few; Stomatocytes Few
[2021-08-31 08:39] LABS: Hemoglobin A1 (Alkaline) 97.8 % (96.5-98.5); Hemoglobin A2 (Alkaline) 2.2 % (1.5-3.5)
[2021-08-31] MEDS: PANTOPRAZOLE 40 MG TABLET PO SCH (10:29)
[2021-08-31] MEDS: PROMETHAZINE 25 MG/1 ML VIAL IM PRN ×2 (10:50→18:11)
[2021-08-31] MEDS: ACETAMINOPHEN 325 MG TABLET PO PRN ×2 (10:51→23:36)
[2021-08-31] MEDS: CYCLOBENZAPRINE 10 MG TABLET PO PRN ×2 (14:58→23:40)
[2021-08-31] MEDS: tiZANidine 4 MG TABLET PO PRN (16:45)
[2021-08-31] MEDS ORDERED: PREGABALIN 75 MG CAPSULE PO SCH (21:00)
[2021-09-01] MEDS: ALBUTEROL/IPRATROPIUM 3 ML NEB RESP TX SCH ×4 (00:08→20:55)
[2021-09-01] MEDS: PROMETHAZINE 25 MG/1 ML VIAL IM PRN (00:48)
[2021-09-01 05:51] LABS: Calcium 8.4 MG/DL (8.5-10.1); Osmolality,Calculated 269.7 MOS/KG (273-304); Potassium 3.5 MMOL/L (3.5-5.1)
[2021-09-01 06:25] LABS: Basophils % 1.4 % (0.0-0.8); Eosinophils % 0.9 % (0.00-10.9); Hemoglobin 7.7 GM/DL (12.0-16.0); Immature Granulocytes % 1.4 %; Immature Granulocytes Absolute 0.03 #; Lymphocytes # 1.3 10*3/uL (1.4-4.0); Lymphocytes % 60.8 % (21.3-54.2); Mean Corpuscular HGB Conc 26.6 GM/DL (32-36); Mean Corpuscular Volume 82.4 FL (87-102); Mean Platelet Volume 10.8 FL (9.6-12.0); Monocytes % 16.1 % (1.7-12.7); Neutrophils % 19.4 % (38.7-73.9); Platelet Count 366 T/CUMM (130-400); Red Blood Count 3.52 MC/CUMM (3.8-5.5); Red Cell Distribution Width 18.3 % (9.3-17.3); White Blood Count 2.2 T/CUMM (4-12)
[2021-09-01 06:34] LABS: Eosinophils 2 % (0-10); Hypochromia 1+; Lymphocytes 60 % (20-55); Microcytosis 1+; Nucleated Red Blood Cells 1 (0-5); Platelet Estimate Adequate; Segmented Neutrophils 23 % (50-85); Total Cells Counted 100
[2021-09-01 06:35] LABS: Atypical Lymphocytes Few
[2021-09-01] MEDS: PANTOPRAZOLE 40 MG TABLET PO SCH (08:59)
[2021-09-01] MEDS: DULoxetine 30 MG CAPSULE PO SCH (08:59)
[2021-09-01] MEDS: PROMETHAZINE 25 MG TABLET PO PRN ×2 (11:36→21:43)
[2021-09-01] MEDS: tiZANidine 4 MG TABLET PO PRN ×2 (11:36→21:43)
[2021-09-01] MEDS: ACETAMINOPHEN 325 MG TABLET PO PRN (11:36)
[2021-09-01] MEDS: MEROPENEM 500 MG in SODIUM CHLORIDE 0.9% 100 ML IV SCH ×2 (15:31→21:44)
[2021-09-01] MEDS: METHADONE 10 MG TABLET PO SCH (16:45)
[2021-09-01] MEDS: FERROUS SULFATE 325 MG TABLET PO SCH (16:45)
[2021-09-02] MEDS: ALBUTEROL/IPRATROPIUM 3 ML NEB RESP TX SCH ×4 (01:25→18:45)
[2021-09-02] MEDS: MEROPENEM 500 MG in SODIUM CHLORIDE 0.9% 100 ML IV SCH ×4 (02:01→21:35)
[2021-09-02] MEDS: PROMETHAZINE 25 MG TABLET PO PRN ×2 (05:20→13:42)
[2021-09-02] MEDS: FERROUS SULFATE 325 MG TABLET PO SCH ×3 (08:21→17:02)
[2021-09-02] MEDS: PANTOPRAZOLE 40 MG TABLET PO SCH (08:21)
[2021-09-02] MEDS: DULoxetine 30 MG CAPSULE PO SCH (08:21)
[2021-09-02] MEDS: CYCLOBENZAPRINE 10 MG TABLET PO PRN (10:03)
[2021-09-02] MEDS ORDERED: SODIUM CHLORIDE 0.9% 1,000 ML IV PRN (10:59)
[2021-09-02] MEDS: ACETAMINOPHEN 325 MG TABLET PO PRN (13:43)
[2021-09-02] MEDS: METHADONE 10 MG TABLET PO SCH (16:33)
[2021-09-02] MEDS: tiZANidine 4 MG TABLET PO PRN (17:36)
[2021-09-02] MEDS: DEXTROSE 5% 1,000 ML IV SCH (17:39)
[2021-09-03] MEDS: ALBUTEROL/IPRATROPIUM 3 ML NEB RESP TX SCH ×4 (00:06→19:05)
[2021-09-03] MEDS: MEROPENEM 500 MG in SODIUM CHLORIDE 0.9% 100 ML IV SCH ×4 (02:02→20:53)
[2021-09-03] MEDS: tiZANidine 4 MG TABLET PO PRN ×2 (02:36→14:49)
[2021-09-03 05:21] LABS: Calcium 8.5 MG/DL (8.5-10.1)
[2021-09-03 05:34] LABS: Basophils # 0.1 10*3/uL (0.0-0.2); Basophils % 1.8 % (0.0-0.8); Eosinophils # 0.1 10*3/uL (0.0-0.87); Eosinophils % 3.6 % (0.00-10.9); Hematocrit 32.1 VOL% (35.7-47.0); Hemoglobin 8.8 GM/DL (12.0-16.0); Immature Granulocytes % 1.1 %; Immature Granulocytes Absolute 0.03 #; Lymphocytes # 1.4 10*3/uL (1.4-4.0); Lymphocytes % 50.2 % (21.3-54.2); Mean Corpuscular HGB Conc 27.4 GM/DL (32-36); Mean Corpuscular Volume 82.7 FL (87-102); Mean Platelet Volume 10.8 FL (9.6-12.0); Monocytes % 18.9 % (1.7-12.7); Neutrophils % 24.4 % (38.7-73.9); Platelet Count 396 T/CUMM (130-400); Red Blood Count 3.88 MC/CUMM (3.8-5.5); Red Cell Distribution Width 18.5 % (9.3-17.3); White Blood Count 2.8 T/CUMM (4-12)
[2021-09-03 05:40] LABS: Eosinophils 2 % (0-10); Hypochromia 1+; Lymphocytes 60 % (20-55); Microcytosis 1+; Ovalocytes Slight; Platelet Estimate Adequate; Segmented Neutrophils 28 % (50-85); Total Cells Counted 100
[2021-09-03 05:41] LABS: Atypical Lymphocytes Few
[2021-09-03] MEDS: DEXTROSE 5% 1,000 ML IV SCH ×2 (06:39→17:09)
[2021-09-03] MEDS: FERROUS SULFATE 325 MG TABLET PO SCH ×2 (08:44→16:47)
[2021-09-03] MEDS: amLODIPine 10 MG TABLET PO SCH (08:44)
[2021-09-03] MEDS: DULoxetine 30 MG CAPSULE PO SCH (08:44)
[2021-09-03] MEDS: PANTOPRAZOLE 40 MG TABLET PO SCH (08:44)
[2021-09-03] MEDS: CYCLOBENZAPRINE 10 MG TABLET PO PRN ×2 (09:12→20:58)
[2021-09-03] MEDS: ACETAMINOPHEN 325 MG TABLET PO PRN (09:13)
[2021-09-03] MEDS: POTASSIUM CHLORIDE RIDER 10 MEQ/100 ML PREMIX IV PRN ×2 (10:08→12:00)
[2021-09-03] MEDS: METHADONE 10 MG TABLET PO SCH (16:47)
[2021-09-03] MEDS: PROMETHAZINE 25 MG TABLET PO PRN (17:55)
[2021-09-04] MEDS: ALBUTEROL/IPRATROPIUM 3 ML NEB RESP TX SCH ×4 (00:18→19:30)
[2021-09-04] MEDS: MEROPENEM 500 MG in SODIUM CHLORIDE 0.9% 100 ML IV SCH ×4 (02:22→20:56)
[2021-09-04 05:11] LABS: Osmolality,Calculated 270.7 MOS/KG (273-304); Potassium 3.2 MMOL/L (3.5-5.1)
[2021-09-04] MEDS: POTASSIUM CHLORIDE RIDER 10 MEQ/100 ML PREMIX IV PRN ×4 (05:30→16:00)
[2021-09-04] MEDS: DEXTROSE 5% 1,000 ML IV SCH ×3 (05:40→17:06)
[2021-09-04 06:03] LABS: Eosinophils # 0.2 10*3/uL (0.0-0.87); Eosinophils % 6.9 % (0.00-10.9); Hemoglobin 9.6 GM/DL (12.0-16.0); Immature Granulocytes % 1.4 %; Immature Granulocytes Absolute 0.04 #; Lymphocytes # 1.7 10*3/uL (1.4-4.0); Mean Corpuscular HGB Conc 26.9 GM/DL (32-36); Mean Corpuscular Volume 84.2 FL (87-102); Mean Platelet Volume 11.4 FL (9.6-12.0); Monocytes % 15.5 % (1.7-12.7); Neutrophils % 18.2 % (38.7-73.9); Platelet Count 449 T/CUMM (130-400); Red Blood Count 4.24 MC/CUMM (3.8-5.5); White Blood Count 2.9 T/CUMM (4-12)
[2021-09-04 06:05] LABS: Hematocrit 35.7 VOL% (35.7-47.0)
[2021-09-04 06:11] LABS: Atypical Lymphocytes Few; Band Neutrophils 1 % (0-10); Eosinophils 7 % (0-10); Hypochromia 1+; Lymphocytes 54 % (20-55); Microcytosis 1+; Platelet Estimate Adequate; Segmented Neutrophils 26 % (50-85); Total Cells Counted 100
[2021-09-04] MEDS: PANTOPRAZOLE 40 MG TABLET PO SCH (09:38)
[2021-09-04] MEDS: LACTATED RINGERS 1,000 ML IV SCH (10:33)
[2021-09-04] MEDS ORDERED: propofoL 200 MG/20 ML VIAL IV ONE (10:37)
[2021-09-04] MEDS ORDERED: LIDOCAINE 2% 5 ML VIAL ONE (10:37)
[2021-09-04] MEDS: tiZANidine 4 MG TABLET PO PRN (12:19)
[2021-09-04] MEDS: DULoxetine 30 MG CAPSULE PO SCH (12:19)
[2021-09-04] MEDS: amLODIPine 10 MG TABLET PO SCH (12:20)
[2021-09-04] MEDS: FERROUS SULFATE 325 MG TABLET PO SCH ×2 (12:20→17:06)
[2021-09-04] MEDS: ACETAMINOPHEN 325 MG TABLET PO PRN (14:29)
[2021-09-04] MEDS: METHADONE 10 MG TABLET PO SCH (16:25)
[2021-09-04] MEDS: CYCLOBENZAPRINE 10 MG TABLET PO PRN (20:50)
[2021-09-04] MEDS: PROMETHAZINE 25 MG TABLET PO PRN (20:52)
[2021-09-05] MEDS: ALBUTEROL/IPRATROPIUM 3 ML NEB RESP TX SCH ×4 (00:32→18:14)
[2021-09-05] MEDS: MEROPENEM 500 MG in SODIUM CHLORIDE 0.9% 100 ML IV SCH ×4 (01:19→20:33)
[2021-09-05] MEDS: DEXTROSE 5% 1,000 ML IV SCH ×4 (06:47→23:12)
[2021-09-05] MEDS: DULoxetine 30 MG CAPSULE PO SCH (09:05)
[2021-09-05] MEDS: PANTOPRAZOLE 40 MG TABLET PO SCH (09:06)
[2021-09-05] MEDS: tiZANidine 4 MG TABLET PO PRN (09:06)
[2021-09-05] MEDS: amLODIPine 10 MG TABLET PO SCH (09:06)
[2021-09-05] MEDS: FERROUS SULFATE 325 MG TABLET PO SCH ×2 (09:10→16:29)
[2021-09-05 09:14] LABS: Calcium 8.6 MG/DL (8.5-10.1); Osmolality,Calculated 270.7 MOS/KG (273-304); Potassium 3.7 MMOL/L (3.5-5.1)
[2021-09-05] MEDS: LACTATED RINGERS 1,000 ML IV SCH (11:41)
[2021-09-05] MEDS: CYCLOBENZAPRINE 10 MG TABLET PO PRN ×2 (12:12→19:10)
[2021-09-05] MEDS: PROMETHAZINE 25 MG TABLET PO PRN ×2 (12:12→23:02)
[2021-09-05] MEDS ORDERED: MAGNESIUM SULF RIDER 2 GM/50 ML PREMIX IV ONE (15:51)
[2021-09-05] MEDS: METHADONE 10 MG TABLET PO SCH (17:12)
[2021-09-05] MEDS: ACETAMINOPHEN 325 MG TABLET PO PRN (19:11)
[2021-09-06] MEDS: ALBUTEROL/IPRATROPIUM 3 ML NEB RESP TX SCH ×4 (00:09→19:26)
[2021-09-06] MEDS: MEROPENEM 500 MG in SODIUM CHLORIDE 0.9% 100 ML IV SCH ×4 (01:38→20:18)
[2021-09-06] MEDS: PROMETHAZINE 25 MG TABLET PO PRN ×2 (05:13→19:41)
[2021-09-06 05:23] LABS: Calcium 8.6 MG/DL (8.5-10.1); Osmolality,Calculated 260.7 MOS/KG (273-304); Potassium 3.9 MMOL/L (3.5-5.1)
[2021-09-06 05:41] LABS: Basophils % 1.2 % (0.0-0.8); Eosinophils # 0.1 10*3/uL (0.0-0.87); Eosinophils % 3.6 % (0.00-10.9); Hematocrit 33.3 VOL% (35.7-47.0); Immature Granulocytes % 1.2 %; Immature Granulocytes Absolute 0.02 #; Lymphocytes # 0.4 10*3/uL (1.4-4.0); Mean Corpuscular HGB Conc 27.3 GM/DL (32-36); Mean Corpuscular Volume 83.3 FL (87-102); Mean Platelet Volume 10.4 FL (9.6-12.0); Monocytes % 11.3 % (1.7-12.7); Neutrophils % 60.7 % (38.7-73.9); Platelet Count 340 T/CUMM (130-400); Red Cell Distribution Width 18.3 % (9.3-17.3); White Blood Count 1.7 T/CUMM (4-12)
[2021-09-06 05:42] LABS: Hemoglobin 9.1 GM/DL (12.0-16.0)
[2021-09-06 05:56] LABS: Band Neutrophils 5 % (0-10); Eosinophils 1 % (0-10); Hypochromia 1+; Lymphocytes 21 % (20-55); Microcytosis 1+; Myelocytes 1 %; Ovalocytes Slight; Segmented Neutrophils 61 % (50-85); Total Cells Counted 100
[2021-09-06 05:57] LABS: Platelet Estimate Normal; Polychromasia Slight
[2021-09-06 06:48] LABS: Sedimentation Rate-Westergren 40 MM/HR (0-20)
[2021-09-06] MEDS ORDERED: LORazepam 2 MG/1 ML VIAL IV ONE (08:25)
[2021-09-06] MEDS: PROMETHAZINE INJ 12.5 MG in SODIUM CHLORIDE 0.9% 50 ML IV PRN (09:03)
[2021-09-06] MEDS: FERROUS SULFATE 325 MG TABLET PO SCH ×2 (09:08→16:54)
[2021-09-06] MEDS: PANTOPRAZOLE 40 MG TABLET PO SCH (09:26)
[2021-09-06] MEDS: tiZANidine 4 MG TABLET PO PRN ×2 (09:27→19:41)
[2021-09-06] MEDS: DULoxetine 30 MG CAPSULE PO SCH (09:27)
[2021-09-06] MEDS: amLODIPine 10 MG TABLET PO SCH (09:27)
[2021-09-06] MEDS: DEXTROSE 5% 1,000 ML IV SCH ×2 (10:33→17:01)
[2021-09-06] MEDS: METHADONE 10 MG TABLET PO SCH (17:02)
[2021-09-06] MEDS: CYCLOBENZAPRINE 10 MG TABLET PO PRN (19:41)
[2021-09-07] MEDS: MEROPENEM 500 MG in SODIUM CHLORIDE 0.9% 100 ML IV SCH ×4 (02:44→22:00)
[2021-09-07] MEDS: DEXTROSE 5% 1,000 ML IV SCH (03:16)
[2021-09-07 05:45] LABS: Calcium 8.5 MG/DL (8.5-10.1); Potassium 3.4 MMOL/L (3.5-5.1)
[2021-09-07] MEDS: PROMETHAZINE 25 MG TABLET PO PRN (05:45)
[2021-09-07] MEDS: tiZANidine 4 MG TABLET PO PRN (05:46)
[2021-09-07] MEDS: CYCLOBENZAPRINE 10 MG TABLET PO PRN (05:46)
[2021-09-07] MEDS: ACETAMINOPHEN 325 MG TABLET PO PRN (05:54)
[2021-09-07 06:00] LABS: Basophils % 1.1 % (0.0-0.8); Eosinophils # 0.1 10*3/uL (0.0-0.87); Eosinophils % 7.6 % (0.00-10.9); Immature Granulocytes % 1.1 %; Immature Granulocytes Absolute 0.02 #; Lymphocytes # 0.9 10*3/uL (1.4-4.0); Lymphocytes % 48.9 % (21.3-54.2); Mean Corpuscular HGB Conc 26.7 GM/DL (32-36); Mean Corpuscular Volume 83.7 FL (87-102); Mean Platelet Volume 10.8 FL (9.6-12.0); Monocytes % 17.4 % (1.7-12.7); Neutrophils % 23.9 % (38.7-73.9); Platelet Count 341 T/CUMM (130-400); Red Cell Distribution Width 18.3 % (9.3-17.3); White Blood Count 1.8 T/CUMM (4-12)
[2021-09-07 06:04] LABS: Hematocrit 31.8 VOL% (35.7-47.0); Hemoglobin 8.5 GM/DL (12.0-16.0)
[2021-09-07 06:12] LABS: Eosinophils 2 % (0-10); Hypochromia 1+; Lymphocytes 43 % (20-55); Microcytosis 1+; Segmented Neutrophils 39 % (50-85); Total Cells Counted 100
[2021-09-07 06:13] LABS: Platelet Estimate Normal; Polychromasia Slight
[2021-09-07] MEDS: ALBUTEROL/IPRATROPIUM 3 ML NEB RESP TX SCH ×4 (07:10→19:38)
[2021-09-07] MEDS ORDERED: LACTATED RINGERS 500 ML IV ONE (07:28)
[2021-09-07] MEDS: POTASSIUM CHLORIDE RIDER 10 MEQ/100 ML PREMIX IV SCH ×2 (07:44→08:46)
[2021-09-07 10:00] LABS: % Iron Saturation 4.2 % (18-50)
[2021-09-07] MEDS: amLODIPine 10 MG TABLET PO SCH (10:00)
[2021-09-07] MEDS: PANTOPRAZOLE 40 MG TABLET PO SCH (10:00)
[2021-09-07] MEDS: DULoxetine 30 MG CAPSULE PO SCH (10:00)
[2021-09-07] MEDS: FERROUS SULFATE 325 MG TABLET PO SCH ×2 (10:00→17:08)
[2021-09-07 10:27] LABS: Folate 13.05 NG/ML (5.38-24.0)
[2021-09-07 12:31] LABS: Glucose,CSF 51 MG/DL (40-70)
[2021-09-07] MEDS: PROMETHAZINE INJ 12.5 MG in SODIUM CHLORIDE 0.9% 50 ML IV PRN (12:32)
[2021-09-07 12:45] LABS: Lymphocytes,CSF 88 %; Monocytes,CSF 13 %; Red Blood Cell,CSF 3 C/CUMM; White Blood Cell,CSF 15 C/CUMM
[2021-09-07 13:52] LABS: Alanine Aminotransferase 24 U/L (13-56); Alkaline Phosphatase 99 U/L (45-117); Aspartate Amino Transferase 17 U/L (0-37); Bilirubin,Total < 0.39 MG/DL (0.20-1.00); Blood Urea Nitrogen 2 MG/DL (7-18); Calcium 8.8 MG/DL (8.5-10.1); Carbon Dioxide 32 MMOL/L (21-32); Estimated Glom Filtration Rate 154 ML/MIN; Glucose 83 MG/DL (74-106); Potassium 3.8 MMOL/L (3.5-5.1); Sodium 136 MMOL/L (136-145); Total Protein 7.9 G/DL (6.4-8.2)
[2021-09-07 14:01] LABS: Basophils % 1.3 % (0.0-0.8); Eosinophils # 0.1 10*3/uL (0.0-0.87); Eosinophils % 7.1 % (0.00-10.9); Hematocrit 36.1 VOL% (35.7-47.0); Hemoglobin 9.8 GM/DL (12.0-16.0); Immature Granulocytes % 0.6 %; Immature Granulocytes Absolute 0.01 #; Lymphocytes # 0.7 10*3/uL (1.4-4.0); Lymphocytes % 47.1 % (21.3-54.2); Mean Corpuscular HGB Conc 27.1 GM/DL (32-36); Mean Corpuscular Volume 83.4 FL (87-102); Monocytes % 12.9 % (1.7-12.7); Platelet Count 361 T/CUMM (130-400); Red Blood Count 4.33 MC/CUMM (3.8-5.5); Red Cell Distribution Width 18.1 % (9.3-17.3); White Blood Count 1.6 T/CUMM (4-12)
[2021-09-07 14:10] LABS: Eosinophils 6 % (0-10); Lymphocytes 49 % (20-55); Segmented Neutrophils 28 % (50-85); Total Cells Counted 100
[2021-09-07 14:12] LABS: Anisocytosis 1+; Hypochromia 1+; Macrocytosis Slight; Microcytosis Slight; Platelet Estimate Adequate; Polychromasia 1+
[2021-09-07] MEDS: METOCLOPRAMIDE 5 MG TABLET PO SCH ×2 (16:19→20:30)
[2021-09-07] MEDS: METHADONE 10 MG TABLET PO SCH (16:19)
[2021-09-07 22:05] LABS: Appearance,CSF Clear
[2021-09-08] MEDS: ACETAMINOPHEN 325 MG TABLET PO PRN ×3 (01:00→18:00)
[2021-09-08] MEDS: CYCLOBENZAPRINE 10 MG TABLET PO PRN ×3 (01:00→14:35)
[2021-09-08] MEDS: ALBUTEROL/IPRATROPIUM 3 ML NEB RESP TX SCH ×5 (01:03→19:15)
[2021-09-08] MEDS: MEROPENEM 500 MG in SODIUM CHLORIDE 0.9% 100 ML IV SCH ×4 (02:00→19:30)
[2021-09-08] MEDS: DEXTROSE 5% 1,000 ML IV SCH (04:49)
[2021-09-08 06:43] LABS: Basophils % 1.6 % (0.0-0.8); Eosinophils # 0.2 10*3/uL (0.0-0.87); Eosinophils % 8.5 % (0.00-10.9); Hematocrit 32.1 VOL% (35.7-47.0); Hemoglobin 8.5 GM/DL (12.0-16.0); Immature Granulocytes % 1.1 %; Immature Granulocytes Absolute 0.02 #; Lymphocytes # 0.7 10*3/uL (1.4-4.0); Lymphocytes % 34.6 % (21.3-54.2); Mean Corpuscular HGB Conc 26.5 GM/DL (32-36); Mean Corpuscular Volume 83.8 FL (87-102); Mean Platelet Volume 11.2 FL (9.6-12.0); Monocytes % 15.4 % (1.7-12.7); Neutrophils % 38.8 % (38.7-73.9); Platelet Count 360 T/CUMM (130-400); Red Blood Count 3.83 MC/CUMM (3.8-5.5); White Blood Count 1.9 T/CUMM (4-12)
[2021-09-08 06:45] LABS: Calcium 8.8 MG/DL (8.5-10.1); Osmolality,Calculated 269.8 MOS/KG (273-304); Potassium 3.9 MMOL/L (3.5-5.1)
[2021-09-08 06:52] LABS: Anisocytosis 1+; Band Neutrophils 5 % (0-10); Eosinophils 7 % (0-10); Lymphocytes 35 % (20-55); Metamyelocytes 1 %; Ovalocytes Few; Platelet Estimate Normal; Segmented Neutrophils 39 % (50-85); Spherocytes 1+; Total Cells Counted 100
[2021-09-08 06:53] LABS: Atypical Lymphocytes Few
[2021-09-08] MEDS: PANTOPRAZOLE 40 MG TABLET PO SCH (09:11)
[2021-09-08] MEDS: DULoxetine 30 MG CAPSULE PO SCH (09:11)
[2021-09-08] MEDS: amLODIPine 10 MG TABLET PO SCH (09:11)
[2021-09-08] MEDS: FERROUS SULFATE 325 MG TABLET PO SCH ×2 (09:12→16:40)
[2021-09-08] MEDS: METOCLOPRAMIDE 5 MG TABLET PO SCH ×4 (09:12→20:00)
[2021-09-08] MEDS ORDERED: diphenhydrAMINE 50 MG/1 ML VIAL IV PRN (13:56)
[2021-09-08] MEDS: METHADONE 10 MG TABLET PO SCH (16:40)
[2021-09-09] MEDS: ACETAMINOPHEN 325 MG TABLET PO PRN ×2 (04:50→13:33)
[2021-09-09] MEDS: PROMETHAZINE 25 MG TABLET PO PRN ×2 (05:25→13:32)
[2021-09-09 05:27] LABS: Calcium 8.5 MG/DL (8.5-10.1); Potassium 3.8 MMOL/L (3.5-5.1)
[2021-09-09 05:35] LABS: Eosinophils # 0.1 10*3/uL (0.0-0.87); Eosinophils % 5.5 % (0.00-10.9); Hematocrit 31.3 VOL% (35.7-47.0); Hemoglobin 8.3 GM/DL (12.0-16.0); Immature Granulocytes % 0.5 %; Immature Granulocytes Absolute 0.01 #; Lymphocytes # 0.6 10*3/uL (1.4-4.0); Lymphocytes % 28.4 % (21.3-54.2); Mean Corpuscular HGB Conc 26.5 GM/DL (32-36); Mean Corpuscular Volume 84.1 FL (87-102); Mean Platelet Volume 10.2 FL (9.6-12.0); Monocytes % 10.9 % (1.7-12.7); Neutrophils % 53.7 % (38.7-73.9); Platelet Count 332 T/CUMM (130-400); Red Blood Count 3.72 MC/CUMM (3.8-5.5); Red Cell Distribution Width 17.9 % (9.3-17.3)
[2021-09-09 05:46] LABS: Anisocytosis 2+; Band Neutrophils 14 % (0-10); Eosinophils 5 % (0-10); Hypochromia 1+; Lymphocytes 29 % (20-55); Platelet Estimate Normal; Segmented Neutrophils 42 % (50-85); Stomatocytes 1+; Total Cells Counted 100
[2021-09-09 05:47] LABS: Tear Drop Cells Few
[2021-09-09] MEDS: ALBUTEROL/IPRATROPIUM 3 ML NEB RESP TX SCH ×4 (06:55→19:10)
[2021-09-09] MEDS: PANTOPRAZOLE 40 MG TABLET PO SCH (08:44)
[2021-09-09] MEDS: amLODIPine 10 MG TABLET PO SCH (08:44)
[2021-09-09] MEDS: METOCLOPRAMIDE 5 MG TABLET PO SCH (08:44)
[2021-09-09] MEDS: FERROUS SULFATE 325 MG TABLET PO SCH ×2 (08:44→16:05)
[2021-09-09] MEDS: DULoxetine 30 MG CAPSULE PO SCH (08:44)
[2021-09-09] MEDS ORDERED: LACTATED RINGERS 500 ML IV ONE (09:20)
[2021-09-09] MEDS: LACTATED RINGERS 1,000 ML IV SCH ×2 (11:16→17:41)
[2021-09-09] MEDS: METOCLOPRAMIDE 10 MG TABLET PO SCH ×3 (11:19→21:04)
[2021-09-09 12:01] LABS: VDRL Spinal Fluid Negative (Negative)
[2021-09-09] MEDS: PROMETHAZINE INJ 12.5 MG in SODIUM CHLORIDE 0.9% 50 ML IV PRN (14:05)
[2021-09-09] MEDS: METHADONE 10 MG TABLET PO SCH (16:05)
[2021-09-09 20:01] LABS: M. Tuberculosis PCR Result Negative (Negative); M. Tuberculosis PCR Source CSF
[2021-09-09] MEDS: tiZANidine 4 MG TABLET PO PRN (21:06)
[2021-09-10] MEDS: ACETAMINOPHEN 325 MG TABLET PO PRN (05:22)
[2021-09-10 05:53] LABS: Calcium 8.8 MG/DL (8.5-10.1); Osmolality,Calculated 270.7 MOS/KG (273-304); Potassium 3.7 MMOL/L (3.5-5.1)
[2021-09-10 06:30] LABS: Basophils % 0.9 % (0.0-0.8); Eosinophils # 0.1 10*3/uL (0.0-0.87); Eosinophils % 5.3 % (0.00-10.9); Immature Granulocytes % 1.3 %; Immature Granulocytes Absolute 0.03 #; Lymphocytes # 1.2 10*3/uL (1.4-4.0); Lymphocytes % 50.4 % (21.3-54.2); Mean Corpuscular HGB Conc 25.7 GM/DL (32-36); Mean Corpuscular Volume 84.5 FL (87-102); Mean Platelet Volume 11.4 FL (9.6-12.0); Monocytes % 12.3 % (1.7-12.7); Neutrophils % 29.8 % (38.7-73.9); Platelet Count 289 T/CUMM (130-400); Red Cell Distribution Width 17.8 % (9.3-17.3); White Blood Count 2.3 T/CUMM (4-12)
[2021-09-10 06:32] LABS: Hemoglobin 8.7 GM/DL (12.0-16.0)
[2021-09-10 06:33] LABS: Hematocrit 33.8 VOL% (35.7-47.0)
[2021-09-10 06:43] LABS: Hypochromia 1+; Lymphocytes 69 % (20-55); Microcytosis 1+; Segmented Neutrophils 24 % (50-85); Total Cells Counted 100
[2021-09-10 06:44] LABS: Ovalocytes Slight; Target Cells Slight
[2021-09-10] MEDS: ALBUTEROL/IPRATROPIUM 3 ML NEB RESP TX SCH ×2 (08:04→13:13)
[2021-09-10] MEDS: amLODIPine 10 MG TABLET PO SCH (09:06)
[2021-09-10] MEDS: PANTOPRAZOLE 40 MG TABLET PO SCH (09:07)
[2021-09-10] MEDS: METOCLOPRAMIDE 10 MG TABLET PO SCH ×2 (09:07→12:02)
[2021-09-10] MEDS: DULoxetine 30 MG CAPSULE PO SCH (09:07)
[2021-09-10] MEDS: FERROUS SULFATE 325 MG TABLET PO SCH (09:40)
[2021-09-10] MEDS: LACTATED RINGERS 1,000 ML IV SCH ×3 (09:49→16:42)
[2021-09-10] MEDS: PROMETHAZINE INJ 12.5 MG in SODIUM CHLORIDE 0.9% 50 ML IV PRN (12:02)
[2021-09-10 12:03] VITALS: BP 133/60
[2021-09-10] MEDS: CYCLOBENZAPRINE 10 MG TABLET PO PRN (13:10)
[2021-09-11 22:26] LABS: Albumin, Serum 3900 mg/dL; IgG, CSF 4.1 mg/dL (<=8.1); IgG, Serum 1640 mg/dL (767 - 1590); IgG/Albumin Ratio, CSF 0.25 (<=0.21); Synthesis Rate, CSF 2.49 mg/24 h (<=12)
[2021-09-12 12:45] LABS: C9orf72 Released By SEE COMMENTS; C9orf72 Result SEE COMMENTS; C9orf72 Result Summary NEGATIVE; C9orf72 Specimen WB Whole Blood
== END 2021-09-10 16:33 | disposition home health service (06) | DRG 663 ==
LOC: N.ED 14:11 → SUATTDRO 18:19 → N.TELES 18:19
PROVIDERS: ADMIT Internal Medicine; ATTEND Emergency Medicine